=== PATIENT | female | born 1940 | race Caucasian/White ===

== ENCOUNTER 2017-08-28 18:26 | Emergency (ER) | payer MEDICARE ==
[2017-08-28 19:40] LABS: BASOPHILS % (AUTO) 0.5 % (0.0-5.0); EOSINOPHILS % (AUTO) 0.7 % (0.0-8.0); LYMPHOCYTES % (AUTO) 14.5 % (21.0-51.0); MEAN CORPUSCULAR HEMOGLOBIN 32.5 pg (27.0-33.0); MEAN CORPUSCULAR VOLUME 95.6 fL (79-99); MONOCYTES % (AUTO) 7.3 % (3.0-13.0); NUCLEATED RED BLOOD CELLS 0.1 % (0.0-0.19); PLATELET COUNT (AUTO) 212 K/uL (130-400); RED BLOOD CELL COUNT(AUTO) 3.76 MIL/uL (4.00-5.50); RED CELL DISTRIBUTION WIDTH 12.8 % (11.0-15.5); WHITE BLOOD COUNT (AUTO) 11.7 K/uL (4.8-10.8)
[2017-08-28 19:55] LABS: CREATININE 1.2 mg/dL (0.5-1.5); POTASSIUM 3.8 mmol/L (3.5-5.1)
[2017-08-28 19:58] LABS: INR 1.16 (0.85-1.15); PARTIAL THROMBOPLASTIN TIME 32.3 SEC (26.3-35.5); PROTHROMBIN TIME 12.1 SEC (9.6-11.6)
[2017-08-28 19:59] LABS: ALBUMIN 3.1 g/dL (3.5-5.0); BILIRUBIN,TOTAL 0.2 mg/dL (0.2-1.0); TOTAL PROTEIN, SERUM 6.4 g/dL (6.0-8.3)
== END 2017-08-28 20:12 | disposition home or self-care (01) ==
LOC: EDH 18:26
DX: S63.591A Other specified sprain of right wrist, initial encounter (principal); S09.8XXA Other specified injuries of head, initial encounter; K59.00 Constipation, unspecified; I48.91 Unspecified atrial fibrillation; Z79.899 Other long term (current) drug therapy; Z98.890 Other specified postprocedural states; W01.0XXA Fall on same level from slipping, tripping and stumbling without subsequent striking against object, initial encounter; Y93.89 Activity, other specified; Y92.89 Other specified places as the place of occurrence of the external cause; Y99.8 Other external cause status
CPT/HCPCS: 29125; 36415; 70450; 72125; 73110; 80053; 85025; 85610; 85730

== ENCOUNTER → 2018-08-07 | Outpatient (CLI) | payer MEDICARE | END | disposition home or self-care (01) | LOC: RAH 13:57 | PROVIDERS: ATTEND Internal Medicine | DX: R59.1 Generalized enlarged lymph nodes (principal); R09.89 Other specified symptoms and signs involving the circulatory and respiratory systems | CPT/HCPCS: 76536; 93880 ==